=== PATIENT | male | born 1960 | race Caucasian/White ===

== ENCOUNTER 2025-02-15 17:19 | Emergency (ER) | payer MEDICAID, SELFPAY ==
--- NOTE | 2025-02-15 17:23 | EKG_ITS ---
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: : 1960 Requested By: Nancy Garcia Order Number: [id number] Reading MD: Nancy Garcia Measurements Intervals [place] Rate: 89 P: 65 UT: 160 QRS: -60 QRSD: 139 T: 63 QT: 396 QTc: 484 Interpretive Statements SINUS RHYTHM WITH FREQUENT VENTRICULAR PREMATURE COMPLEXES IN A BIGEMINAL PATTERN INTRAVENTRICULAR CONDUCTION DELAY [130+ ms QRS DURATION] MODERATE VOLTAGE CRITERIA FOR LVH, CONSIDER NORMAL VARIANT [MEETS CRITERIA IN ONE OF: R(aVL), S(V1), R(V5), R(V5/V6)+S(V1)] POSSIBLE ANTERIOR MYOCARDIAL INFARCTION , OF INDETERMINATE AGE [30 ms Q WAVE IN V3/V4, OR R < 0.2 mV IN V4] No previous ECG available for comparison /store/S0/[id number]/ecg/[id number].pdf
[2025-02-15 17:24] VITALS: PULSE 90; O2SAT 98; BMI 29.7
--- NOTE | 2025-02-15 17:27 | PD.EDRME ---
Rapid Medical Screening Exam RME Arrival date/time: 02/15/25 17:19 Chief Complaint: Neuro Symptoms/Deficit Time Seen by Provider: 02/15/25 17:20 RME Narrative: 64 year old male with history of hypertension and diabetes presents to the ED BIBA from home for evaluation of right facial droop and numbness beginning 8pm last night. States he noticed the symptoms while drinking water adding it was coming out of the right side of my mouth . Additionally reports some difficulty closing his right eye and it feeling mildly dry. No other associated symptoms reported. Denies headache, change in vision, change in speech, or unilateral weakness. Per medics, on the field patient only noted to have right facial droop and strength in all extremities equal. Prehospital BS 281.
[2025-02-15 17:32] VITALS: BP 166/95; PULSE 89; RESP 22; TEMP 36.9; O2SAT 93
[2025-02-15 17:39] LABS: Basophils # (Auto) 0.1 Thou/mm3 (0.0-0.2); Basophils % (Auto) 1 % (0-2.5); Eosinophils # (Auto) 0.7 Thou/mm3 (0.0-0.5); Eosinophils % (Auto) 6 % (0-10); Hematocrit 48.0 % (41.0-53.0); Hemoglobin 16.5 g/dL (13.5-16.0); Immature Granulocytes Auto 0.05 Thou/mm3 (0.00-0.00); Lymphocytes # (Auto) 2.5 Thou/mm3 (1.0-4.8); Lymphocytes % (Auto) 24 % (10-50); Mean Corpuscular HGB Conc 34.4 g/dl (31.0-37.0); Mean Corpuscular Hemoglobin 29.5 pg (25.0-35.0); Mean Corpuscular Volume 86 fL (80-100); Monocytes # (Auto) 0.8 Thou/mm3 (0.0-0.8); Monocytes % (Auto) 8 % (0-12); Neutrophils # (Auto) 6.5 Thou/mm3 (1.8-7.7); Neutrophils % (Auto) 61 % (37-80); Nucleated Red Blood Cell # 0.00 Thou/mm3 (0.00-0.00); Nucleated Red Blood Cell % 0 /100 WBC (0); Platelet Count 191 Thou/mm3 (140-440); RDW Standard Deviation 39.2 fL (35.1-43.9); Red Blood Count 5.60 Miln/mm3 (4.50-5.90); White Blood Count 10.7 Thou/mm3 (3.8-10.6)
--- NOTE | 2025-02-15 17:42 | EDNOTE_ITS ---
ED General RME/HPI General Chief complaint: Neuro Symptoms/Deficit Stated complaint: FACIAL NUMBNESS Time Seen by Provider: 02/15/25 17:20 Arrival date/time: 02/15/25 17:19 CC: Right sided facial numbness and weakness HPI onset at approximately 8 PM last night, patient is unable to drink without losing food. The patient also said his right eye has been watering. Denies any other symptoms including chest pain lower extremity upper extremity weakness ,shortness of breath or difficulty breathing. RME / HPI RME / HPI narrative: 64 year old male with history of hypertension and diabetes presents to the ED BIBA from home for evaluation of right facial droop and numbness beginning 8pm last night. States he noticed the symptoms while drinking water adding it was coming out of the right side of my mouth . Additionally reports some difficulty closing his right eye and it feeling mildly dry. No other associated symptoms reported. Denies headache, change in vision, change in speech, or unilateral weakness. Per medics, on the field patient only noted to have right facial droop and strength in all extremities equal. Prehospital BS 281. Related Data Home Medications ?Medication ?Instructions ?Recorded ?Confirmed hydrochlorothiazide 25 mg tablet 12.5 mg PO DAILY CHOL ESTEROL ##0 02/23/09 Aspirin Ec * (ECOTRIN *) 81 mg PO QPM Heart ##0 12/30 amlodipine 10 mg tablet (Norvasc) 10 mg PO QDAY High B lood Pressure 12/30/14 #0 tabs carvedilol 25 mg tablet (Coreg) 25 mg PO BID Heart #0 tabs 12/30/14 gemfibrozil 600 mg tablet (Lopid) 600 mg PO BID High C holesterol #0 12/30/14 tabs lisinopril 40 mg tablet 40 ml PO QDAY High Blood Pre ssure 12/30/14 #0 tabs metformin 500 mg tablet 500 mg PO BIDAC Diabetes #0 tabs 12/30/14 (Glucophage) pravastatin 40 mg tablet 40 mg PO HS High Cholesterol #0 12/30/14 (Pravachol) tabs ranitidine HCl 300 mg tablet 300 mg PO QPM GERD #0 tab s 12/30/14 Previous Rx's ?Medication ?Instructions ?Recorded Cyclobenzaprine * (FLEXERIL *) 10 mg PO Q8HR PRN pain #30 tabs 09/04/15 carisoprodol 350 mg tablet 350 mg PO TID PRN pain #9 t abs 09/05/15 nirmatrelvir 300 mg (150 mg See Rx Instructions PO .CO MPLEX 01/15/24 x2)-ritonavir 100 mg tablet,dose #30 tabs pack (Paxlovid) nirmatrelvir 300 mg (150 mg See Rx Instructions PO .CO MPLEX 01/15/24 x2)-ritonavir 100 mg tablet,dose #30 tabs pack (Paxlovid) prednisone 20 mg tablet See Taper PO BID 3 days #6 t abs 02/15/25 valacyclovir 500 mg tablet 500 mg PO BID #10 tabs 12/03 Allergies Allergy/AdvReac Type Severity Reaction Status Date / Time shellfish derived Allergy Anaphylaxis Verified 02/15/25 17:44 OPIATES AdvReac Severe I BLACK Uncoded 02/15/25 17:44 OUT, POSSIBLE COMA Review of Systems Review of Systems Narrative Review of Systems: GEN: No fever, no chills, no weight loss EYES: No discharge, no visual changes, no pain HEENT: No ear pain, no congestion, no sore throat PULM: No shortness of breath, no cough, no congestion CV: No chest pain, no dyspnea on exertion, no palpitations GI: No nausea, no vomiting, no diarrhea, no pain, no constipation : No frequency, no urgency, no dysuria MUSC/SKEL: No joint pain, no back pain SKIN: No rash PSYCH: No hallucinations, no depression HEME/LYMPH: No easy bleeding or bruising tendencies NEURO: No weakness, no headache Past Medical History Social History SMOKING STATUS: Never smoker SUBSTANCE USE: does not use ED Exam Narrative Physical exam: [General: Obese not in any acute distress Head normocephalic HEENT: Eyes: Pupils are PERRLA EOMs are intact. Face, right sided facial droop, right sided smile droop with smiling, unable to puff out right cheek without losing air. Unable to close right eye upper lid completely. Ears EACs are clear TMs positive cone of light no erythema edema. All other subsystems of HEENT are within acceptable limits Neck is supple nontender Chest equal chest rise nontender to palpation Respiratory: Clear to auscultation no wheezes crackles or rubs CV: Rate rhythm is regular no murmurs rubs or clicks Abdomen is distended secondary to body habitus soft nontender no masses positive bowel sounds all 4 quadrants Back: No CVA tenderness no spinous process tenderness from cervical spine thoracic and lumbar spine Skin: Intact no petechiae rash induration ulceration or crepitus Extremities: Moving all extremity against resistance cap refill less than 2 s econds neurosensory intact Neuro: Awake alert oriented x3 Glascow coma 15 no focal deficits] cranial nerves II through IV and through XII grossly intact. Course Quality Measures none Orders Category Date Time Status Bedside COVID-19 Antigen Test NOW Care 02/15/25 17:24 Active Bedside Influenza A&B Antigen Test NOW Care 02/15/25 17:24 Active Fire Prevention Specialist NOW Care 02/15/25 17:23 Active EKG (ED ONLY) *Do not use* NOW Care 02/15/25 17:23 Completed EKG (ED Only) Stat Exams 02/15/25 17:23 Draft CBC Stat Lab 02/15/25 17:20 Completed Comprehensive Metabolic Panel Stat Lab 02/15/25 17:20 Completed Influenza A & B Rapid Panel Stat Lab 02/15/25 17:42 Completed Magnesium Stat Lab 02/15/25 17:20 Completed Troponin I Stat Lab 02/15/25 17:20 Completed Vital Signs Vital signs: Vital Signs Temperature 98.4 F 02/15/25 17:32 Pulse Rate 89 02/15/25 17:32 Respiratory Rate 22 H 02/15/25 17:32 Blood Pressure 166/95 H 02/15/25 17:32 Pulse Oximetry (%) 93 L 02/15/25 17:32 Oxygen Delivery Method Room Air 02/15/25 17:32 Discharge Plan Plan Patient Disposition: HOME (Self Care) Patient condition on transfer: Stable Prescriptions/Referrals Prescriptions/Med Rec: New prednisone 20 mg tablet See Taper PO BID 3 Days Qty: 6 0RF Taper: Prednisone Taper 20 mg DAILY for 2 Days and 0 Hour 10 mg DAILY for 2 Days and 0 Hour 5 mg DAILY for 7 Days and 0 Hour valacyclovir 500 mg tablet 500 mg PO BID Qty: 10 0RF No Action hydrochlorothiazide 25 MG tablet 12.5 mg PO DAILY Qty: 0 Aspirin Ec * (ECOTRIN *) 81 MG TABLET.DR 81 mg PO QPM Qty: 0 metformin [Glucophage] 500 MG tablet 500 mg PO BIDAC Qty: 0 carvedilol [Coreg] 25 MG tablet 25 mg PO BID Qty: 0 pravastatin [Pravachol] 40 MG tablet 40 mg PO HS Qty: 0 ranitidine HCl 300 MG tablet 300 mg PO QPM Qty: 0 amlodipine [Norvasc] 10 MG tablet 10 mg PO QDAY Qty: 0 gemfibrozil [Lopid] 600 MG tablet 600 mg PO BID Qty: 0 lisinopril 40 MG tablet 40 ml PO QDAY Qty: 0 Cyclobenzaprine * (FLEXERIL *) 10 MG tablet 10 mg PO Q8HR PRN (Reason: pain) Qty: 30 0RF carisoprodol 350 MG tablet 350 mg PO TID PRN (Reason: pain) Qty: 9 0RF Paxlovid 300 mg (150 mg x 2)-100 mg tablets,dose pack See Rx Instructions PO .COMPLEX Qty: 30 0RF Rx Instructions: take TWO 150 mg tablets of nirmatrelvir with ONE 100 mg tablet of ritonavir twice daily for 5 days Paxlovid 300 mg (150 mg x 2)-100 mg tablets,dose pack See Rx Instructions PO .COMPLEX Qty: 30 0RF Rx Instructions: take TWO 150 mg tablets of nirmatrelvir with ONE 100 mg tablet of ritonavir twice daily for 5 days Referrals: Bruce Lee MD [Physician, Family Practice] - In 1 week No Primary/Family,Physician [Primary Care Provider] - In 1 week Problem List Clinical Impression: Barragan's palsy Patient/Caregiver Discharge Instructions Education Materials: ED Barragan's Palsy Additional Instructions: The medicines prescribed inferior to shortness symptoms. But make sure you understand that if you take the steroids your blood sugars will go quite high. Please follow-up with your primary care doctor if there is worsening of symptoms return the emergency room meetly for further evaluation. Print Language: Croatian Stand Alone Forms: Marissa Award Info., Patient Portal Info Letter, Work/School Release PA/CERTIFIED PROCEDURAL CODER Supervising Physician PA/CERTIFIED PROCEDURAL CODER Supervising Physician: Mark Young ENP MDM Clinical Information Provided by: patient and EMS Medical Records reviewed [facility] and EMS Meds/Rx considered, not ordered None Labs/Rad/Tests considered, not ordered None Chronic Illness/Social Conditions which may negatively complicate care or outcome(s)-explain: None or not applicable Explain: Hypertension EKG EKG not done Labs Labs: interpreted by nh Lab(s) Interpretation(s): CBC shows no leukocytosis no anemia no thrombocytopenia CMP shows no significant electrolyte imbalances glucose 238. No transaminitis or T. bili elevation COVID influenza are negative. Imaging Imaging interpretation: none Medication Administration(s) none Diagnosis Differential Diagnosis ED Complaint MDM: Barragan's palsy TIA CVA
[2025-02-15 17:55] LABS: Alanine Aminotransferase 24 U/L (10-49); Albumin, Serum 4.4 gm/dL (3.4-4.8); Albumin/Globulin Ratio 1.6 (1.2-2.2); Alkaline Phosphatase 80 U/L (46-116); Anion Gap 11 (7-16); Aspartate Amino Transferase 15 U/L (0-34); BUN/Creatinine Ratio 9 Ratio (12-20); Bilirubin,Total 0.3 mg/dL (0.3-1.2); Blood Urea Nitrogen 12 mg/dL (9-23); Calcium 9.0 mg/dL (8.3-10.6); Calcium (Corrected) 9.0 mg/dL (8.5-10.1); Carbon Dioxide 27.1 mMol/L (20.0-31.0); Chloride 103 mMol/L (98-107); Creatinine (Component) 1.4 mg/dL (0.6-1.3); Estimated Creatinine Clearance 69.8 mL/min (>60); Globulin 2.7 gm/dL (2.3-3.5); Glucose 238 mg/dL (74-106); Magnesium 2.4 mg/dL (1.6-2.6); Osmolality,Calculated 288 (275-295); Potassium 3.6 mMol/L (3.4-5.1); Sodium 141 mMol/L (136-145); Total Protein 7.1 gm/dL (5.7-8.2); Troponin I < 0.020 ng/mL (0.0-0.045); eGFR 56 See Note
[2025-02-15 18:05] LABS: Influenza A Ag Negative; Influenza B Ag Negative
[2025-02-15 19:21] VITALS: BP 163/83; PULSE 86; RESP 22; TEMP 36.7; O2SAT 95
== END 2025-02-15 19:22 | disposition home or self-care (01) ==
PROVIDERS: Emergency Provider Emergency Medicine
DX: G51.0 Bell's palsy (principal); I49.3 Ventricular premature depolarization; I45.89 Other specified conduction disorders; Z11.52 Encounter for screening for COVID-19
CPT/HCPCS: 36415; 80053; 83735; 84484; 85025; 87502; 87811; 93005; 99284